=== PATIENT | male | born 1970 | race Caucasian/White ===

== ENCOUNTER 2017-01-18 09:35 | Emergency (ER) | payer MEDICAID ==
[2017-01-18] MEDS ORDERED: NS 1,000 ML IV ONE (09:57)
--- NOTE | 2017-01-18 09:59 | EDPHY ---
H & P Stated Complaint: Bloody stools for 1-2 weeks. Time Seen by Provider: 01/18/17 09:54 HPI/ROS: HPI: This is a 46-year-old male presents with Chief Complaint: Bloody stools for 1-2 weeks. Location: GI Quality: Bleeding Duration: 1-2 weeks Signs and Symptoms:+ intermittent minimal left lower quadrant pain, no nausea, no vomiting, no hematemesis, no testicular groin pain, no hemorrhoids Timing: Daily Severity: [id number] Context: Patient drinks alcohol regularly and has a history of diverticulitis with perforation and sigmoid colectomy presents with daily to every other day bowel movements that have blood in them. He does not take any NSAIDs. Denies any hemorrhoids or rectal pain. Does report some intermittent left lower quadrant minimal pain that is waxing waned over the last 1-2 weeks. Eating and drinking normally. Followed by Dr. Diaz. Two years ago so recommended he was fist have an outpatient colonoscopy and patient never followed up as" he was feeling better." Modifying Factors: None Comment: ROS: see HPI Constitutional: No fever, no chills, no weight loss Eyes: No blurred vision Respiratory: No shortness of breath, no cough Cardiovascular: No chest pain Gastrointestinal: No nausea, no vomiting, no diarrhea Genitourinary: No dysuria Extremities: No myalgias Neurologic: No weakness, no numbness Skin: No rashes Hematologic: No bruising, no bleeding MEDICAL/SURGICAL/SOCIAL HISTORY: medical- obstructive sleep apnea, obesity, anxiety, diverticulitis w/ perforation, seizures, DVT surgical- hernia repair, sigmoid colectomy Social history: Employed CONSTITUTIONAL: Overweight adult white male who smells heavily of marijuana, awake and alert, no obvious distress HEENT: Atraumatic and normocephalic, PERRL, EOMI. Tympanic membranes clear. Oropharynx clear, no exudate and moist pink mucosa. Airway patent. No lymphadenopathy. No meningismus. Cardiovascular: Normal S1/S2, regular rate, regular rhythm, without murmur rub or gallop. PULMONARY/CHEST: Symmetrical and nontender. Clear to auscultation bilaterally. Good air movement. No accessory muscle usage. ABDOMEN: Soft, protuberant, well-healed midline incision, mild deep left lower quadrant tenderness, no rebound, no guarding, no peritoneal signs, no masses or organomegaly. No CVAT. RECTAL: Good sphincter tone, light brown stool in vault, no external hemorrhoids , no fissures, no palpable masses, guaiac positive EXTREMITIES: 2/2 pulses, strength 5/5, no deformities, no clubbing, no cyanosis or edema. NEUROLOGICAL: no focal neuro deficits. GCS 15. SKIN: Warm and dry, no erythema. no rash. Good capillary refill. Source: Patient Exam Limitations: No limitations - Personal History Current Tetanus Diphtheria and Acellular Pertussis (TDAP): Yes Tetanus Vaccine Date: < 10 YEARS - Medical/Surgical History Hx Asthma: No Hx Chronic Respiratory Disease: Yes Hx Diabetes: No Hx Cardiac Disease: No Hx Renal Disease: No Hx Cirrhosis: No Hx Alcoholism: No Hx HIV/AIDS: No Hx Splenectomy or Spleen Trauma: No Other PMH: medical- obstructive sleep apnea, obesity, anxiety, diverticuitis w/ perforation, seizures, DVT. surgical- hernia repair, sigmoid colectomy - Social History Smoking Status: Current every day smoker Constitutional: Initial Vital Signs Temperature (C) 36.6 C 01/18/17 09:43 Heart Rate 84 01/18/17 09:43 Respiratory Rate 18 01/18/17 09:43 Blood Pressure 129/99 H 01/18/17 09:43 O2 Sat (%) 96 01/18/17 09:43 O2 Delivery Mode Room Air Allergies/Adverse Reactions: No Known Allergies Allergy (Verified 09/03/15 15:55) Home Medications: Medication Instructions Recorded Ciprofloxacin [Cipro] 500 mg PO BID #14 tab 01/18/17 metroNIDAZOLE [Flagyl 500 mg (*)] 500 mg PO TID #21 tab 01/18/17 Medical Decision Making ED Course/Re-evaluation: Labs, urinalysis, IV fluids, IV medications, CT abdomen and pelvis scan Vital signs reviewed upon arrival and no hypoxia not tachycardic 1045: Labs reviewed and grossly unremarkable including H&H stable. Guaiac positive. Called by Radiology who advised that shows diverticulitis in the hepatic flexure ; no signs of perforation Given Cipro and Flagyl. Tolerating p.o. and pain controlled. Patient is well-versed in diverticular diet and will follow up with Dr. Diaz Reassessed patient in no pain and asking for regular meal while he waits for his ride to come. Patient is appropriate to treat outpatient. Differential Diagnosis: Abdominal pain including but not limited to diverticulitis, appendicitis, cholecystitis, gastritis and urinary tract infection. - Data Points Laboratory Results: Laboratory Results 01/18/17 10:13 01/18/17 10:13 01/18/17 01/18/17 01/18/17 10:55 10:13 10:13 WBC RBC Hgb Hct MCV MCH MCHC RDW Plt Count MPV Neut % (Auto) Lymph % (Auto) [place] % (Auto) Eos % (Auto) Baso % (Auto) Nucleat RBC Rel Count Absolute Neuts (auto) Absolute Lymphs (auto) Absolute Monos (auto) Absolute Eos (auto) Absolute Basos (auto) Absolute Nucleated RBC Immature Gran % Immature Gran # PT 12.9 SEC SEC (12.0-15.0) INR 0.98 (0.83-1.16) APTT 29.2 SEC SEC (23.0-38.0) Sodium 143 mEq/L mEq/L (134-144) Potassium 4.6 mEq/L mEq/L (3.5-5.2) Chloride 109 mEq/L mEq/L (97-110) Carbon Dioxide 22 mEq/l mEq/l (22-31) Anion Gap 12 mEq/L mEq/L (8-16) BUN 18 mg/dL mg/dL (7-23) Creatinine 0.9 mg/dL mg/dL (0.7-1.3) Estimated GFR > 60 Glucose 99 mg/dL mg/dL (70-100) Calcium 9.3 mg/dL mg/dL (8.5-10.4) Total Bilirubin 0.5 mg/dL mg/dL (0.1-1.4) Conjugated Bilirubin 0.2 mg/dL mg/dL (0.0-0.5) Unconjugated Bilirubin 0.3 mg/dL mg/dL (0.0-1.1) AST 22 IU/L IU/L (17-59) ALT 34 IU/L IU/L (21-72) Alkaline Phosphatase 114 IU/L IU/L (38-126) Total Protein 7.1 g/dL g/dL (6.3-8.2) Albumin 4.2 g/dL g/dL (3.5-5.0) Lipase 48 IU/L IU/L (23-300) Urine Color YELLOW Urine Appearance CLEAR Urine pH 6.0 (5.0-7.5) Ur Specific [place] 1.023 (1.002-1.030) Urine Protein NEGATIVE (NEGATIVE) Urine Ketones NEGATIVE (NEGATIVE) Urine Blood NEGATIVE (NEGATIVE) Urine Nitrate NEGATIVE (NEGATIVE) Urine Bilirubin NEGATIVE (NEGATIVE) Urine Urobilinogen NEGATIVE EU EU (0.2-1.0) Ur Leukocyte Esterase NEGATIVE (NEGATIVE) Urine Glucose NEGATIVE (NEGATIVE) Stool Occult Bld Scrn 01/18/17 01/18/17 10:13 10:03 WBC 11.37 10^3/uL H 10^3/uL (3.80-9.50) RBC 5.81 10^6/uL 10^6/uL (4.40-6.38) Hgb 17.5 g/dL g/dL (13.7-17.5) Hct 50.1 % % (40.0-51.0) MCV 86.2 fL fL (81.5-99.8) MCH 30.1 pg pg (27.9-34.1) MCHC 34.9 g/dL g/dL (32.4-36.7) RDW 14.2 % % (11.5-15.2) Plt Count 295 10^3/uL 10^3/uL (150-400) MPV 8.9 fL fL (8.7-11.7) Neut % (Auto) 66.4 % % (39.3-74.2) Lymph % (Auto) 23.8 % % (15.0-45.0) [place] % (Auto) 6.0 % % (4.5-13.0) Eos % (Auto) 3.0 % % (0.6-7.6) Baso % (Auto) 0.4 % % (0.3-1.7) Nucleat RBC Rel Count 0.0 % % (0.0-0.2) Absolute Neuts (auto) 7.55 10^3/uL H 10^3/uL (1.70-6.50) Absolute Lymphs (auto) 2.71 10^3/uL 10^3/uL (1.00-3.00) Absolute Monos (auto) 0.68 10^3/uL 10^3/uL (0.30-0.80) Absolute Eos (auto) 0.34 10^3/uL 10^3/uL (0.03-0.40) Absolute Basos (auto) 0.05 10^3/uL 10^3/uL (0.02-0.10) Absolute Nucleated RBC 0.00 10^3/uL 10^3/uL (0-0.01) Immature Gran % 0.4 % % (0.0-1.1) Immature Gran # 0.04 10^3/uL 10^3/uL (0.00-0.10) PT INR APTT Sodium Potassium Chloride Carbon Dioxide Anion Gap BUN Creatinine Estimated GFR Glucose Calcium Total Bilirubin Conjugated Bilirubin Unconjugated Bilirubin AST ALT Alkaline Phosphatase Total Protein Albumin Lipase Urine Color Urine Appearance Urine pH Ur Specific [place] Urine Protein Urine Ketones Urine Blood Urine Nitrate Urine Bilirubin Urine Urobilinogen Ur Leukocyte Esterase Urine Glucose Stool Occult Bld Scrn POSITIVE H (NEGATIVE) Medications Given: Discontinued Medications Sodium Chloride (Ns) 1,000 mls @ 0 mls/hr IV EDNOW ONE; Wide Open PRN Reason: Protocol Stop: 01/18/17 09:58 Last Admin: 01/18/17 10:18 Dose: 1,000 mls Lorazepam (Ativan Injection) 1 mg IVP EDNOW ONE Stop: 01/18/17 10:48 Last Admin: 01/18/17 10:51 Dose: 1 mg Pantoprazole Sodium (Protonix) 40 mg IVP EDNOW ONE Stop: 01/18/17 10:04 Last Admin: 01/18/17 10:19 Dose: 40 mg Departure - Departure Disposition: Home, Routine, Self-Care Clinical Impression: Diverticulitis, Guaiac positive stools Condition: Good Instructions: Diverticulitis (ED), Diverticulitis Diet (ED), Rectal Bleeding ( ED) Additional Instructions: Please avoid any NSAIDs. Follow diverticular diet. Take all antibiotics as prescribed until completed. Follow up with Dr. Diaz next week. Referrals: Lucas Diaz MD [Primary Care Provider] - 2-3 days without fail Prescriptions: Ciprofloxacin [Cipro] 500 mg PO BID #14 tab metroNIDAZOLE [Flagyl 500 mg (*)] 500 mg PO TID #21 tab
[2017-01-18] MEDS ORDERED: PANTOPRAZOLE SODIUM 40 MG VIAL IVP ONE (10:03)
[2017-01-18] MEDS ORDERED: IOPAMIDOL (ISOVUE-300) 100 ML BTL ONE (10:13)
[2017-01-18 10:22] LABS: % IMMATURE GRANULYOCYTES 0.4 % (0.0-1.1); ABSOLUTE IMMATURE GRANULOCYTES 0.04 10^3/uL (0.00-0.10); ADD DIFF? NO; ADD MORPH? NO; ADD SCAN? NO; ATYPICAL LYMPHOCYTE FLAG 0 (0-99); FRAGMENT RBC FLAG 0 (0-99); HEMATOCRIT 50.1 % (40.0-51.0); HEMOGLOBIN 17.5 g/dL (13.7-17.5); LEFT SHIFT FLG 0 (0-99); LIPEMIA HEMOLYSIS FLAG 90 (0-99); MEAN CELL HEMOGLOBIN 30.1 pg (27.9-34.1); MEAN CELL HEMOGLOBIN CONCENTR. 34.9 g/dL (32.4-36.7); MEAN CELL VOLUME 86.2 fL (81.5-99.8); MEAN PLATELET VOLUME 8.9 fL (8.7-11.7); PLATELET CLUMPS FLAG 0 (0-99); PLATELET COUNT 295 10^3/uL (150-400); RED BLOOD CELL COUNT 5.81 10^6/uL (4.40-6.38); RED CELL DISTRIBUTION WIDTH 14.2 % (11.5-15.2)
[2017-01-18 10:32] LABS: INR 0.98 (0.83-1.16); PROTIME(PATIENT) 12.9 SEC (12.0-15.0)
[2017-01-18 10:33] LABS: APTT 29.2 SEC (23.0-38.0)
[2017-01-18 10:36] LABS: ALANINE AMINOTRANSFERASE 34 IU/L (21-72); ALBUMIN 4.2 g/dL (3.5-5.0); ALKALINE PHOSPHATASE 114 IU/L (38-126); ANION GAP 12 mEq/L (8-16); ASPARTATE AMINOTRANSFERASE 22 IU/L (17-59); BILIRUBIN,TOTAL 0.5 mg/dL (0.1-1.4); BILIRUBIN-CONJUGATED 0.2 mg/dL (0.0-0.5); BILIRUBIN-UNCONJUGATED 0.3 mg/dL (0.0-1.1); CALCIUM 9.3 mg/dL (8.5-10.4); CARBON DIOXIDE 22 mEq/l (22-31); CHLORIDE 109 mEq/L (97-110); CREATININE 0.9 mg/dL (0.7-1.3); GLOMERULAR FILTRATION RATE > 60; GLUCOSE 99 mg/dL (70-100); POTASSIUM 4.6 mEq/L (3.5-5.2); SODIUM 143 mEq/L (134-144); TOTAL PROTEIN 7.1 g/dL (6.3-8.2)
[2017-01-18] MEDS ORDERED: LORazepam 2 MG/ML INJ IVP ONE (10:47)
[2017-01-18 11:05] LABS: COLOR YELLOW; LEUKOCYTE ESTERASE,URINE NEGATIVE (NEGATIVE); NITRITE,URINE NEGATIVE (NEGATIVE)
[2017-01-18] MEDS ORDERED: metroNIDAZOLE 500 MG TAB PO ONE (12:24)
[2017-01-18] MEDS ORDERED: CIPROFLOXACIN 500 MG TAB PO ONE (12:24)
[2017-01-18 12:27] VITALS: PULSE 74
[2017-01-18 13:10] VITALS: BP 125/76; RESP 15; TEMP 97.2; O2SAT 94
--- NOTE | 2017-01-18 16:34 | ASDISCHSUM ---
Discharge Information Plan Status:Home with No Needs Medically Cleared to Leave: Discharge Date:01/18/2017 01:09 PM CM D/C Disposition:Home, Routine, Self-Care ADT D/C Disposition:Home, Routine, Self-Care Projected Discharge Date:01/18/2017 01:09 PM Transportation at D/C:None or Unknown Discharge Delay Reason: Follow-Up Date:01/18/2017 01:09 PM Discharge Slot: Final Diagnosis: Placement Information Patient Contact Information Contact Name:SAMIR Relationship:Other Address: Work Phone: City:[place] Alternate Phone: State/[place] Code:[place] Email: Financial Information Financial Class: Primary Plan 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 Emergency dept visits in Answers: 1 last 6 months Score: 1 Date Signed: 01/18/2017 04:33 PM Electronically Signed By:Samina Rasmussen RN Intervention Information
== END 2017-01-18 13:09 | disposition home or self-care (01) ==
DX: K57.92 Diverticulitis of intestine, part unspecified, without perforation or abscess without bleeding (principal); F17.200 Nicotine dependence, unspecified, uncomplicated; E86.9 Volume depletion, unspecified
CPT/HCPCS: 96374; J2060; Q9967

== ENCOUNTER 2017-09-05 16:45 | Emergency (ER) | payer MEDICAID ==
[2017-09-05] MEDS ORDERED: PANTOPRAZOLE SODIUM 40 MG VIAL IVP ONE (17:30)
[2017-09-05] MEDS ORDERED: NS 500 ML IV ONE (17:30)
--- NOTE | 2017-09-05 17:36 | EDPHY ---
H & P Time Seen by Provider: 09/05/17 17:06 HPI/ROS: HPI Abdominal pain, rectal bleeding. 47-year-old male by private vehicle. This patient reports that he has a history of diverticulitis and a colonic resection that was performed by Dr. Ismael Diaz. He reports that this occurred about 2 year ago. He reports that last year he had some mild bleeding per rectum with associated left lower quadrant abdominal pain. He was seen in the emergency department at this time. He had a unremarkable workup. His pain resolved and he was discharged. He reports that since then he has been feeling well. He reports that about a week ago he started getting intermittent lower and mid abdominal pain which he describes as coming on intermittently in waves. He describes pain as aching and sharp. He reports that over the last couple of days he has noticed that his stools appear darker and today is stools were black and he reports having some blood mixed in with his black stool. Patient reports his last meal was lunch. He reports having turkey potatoes at that time. ROS: Constitutional: No fever, no chills. No weakness. Eyes: No discharge. No changes in vision. ENT: No sore throat. No nasal congestion or rhinorrhea. Respiratory: No cough. No shortness of breath. Cardiac: No chest pain, no palpitations. Gastrointestinal: No abdominal pain, no vomiting, no diarrhea. Genitourinary: No hematuria. No dysuria or increased frequency with urination. Musculoskeletal: No back pain. No neck pain. No myalgias or arthralgias. Skin: No rashes. Neurological: No headache. No focal weakness or altered sensation. Past medical history: Obstructive sleep apnea, obesity, anxiety, seizures, DVT , sigmoid colectomy. Primary care physician is Dr. Ambriz. General surgeon is Dr. Eric Diaz. Social history: Nonsmoker. He lives in [facility]. Denies alcohol. Physical Exam: General Appearance: Alert, anxious, obese habitus, no distress. This patient is responding to questions appropriately and in full sentences. This patient appears well-hydrated and well-nourished. Eyes: Pupils equal and round no pallor or injection. No lid edema, erythema or injection. Respiratory: There are no retractions, lungs are clear to auscultation with good air movement bilaterally. Cardiovascular: Regular rate and rhythm. No murmur. Gastrointestinal: Large midline surgical scar. Obese habitus. Abdomen is soft and nontender throughout on deep palpation, no masses, bowel sounds normal. No focal tenderness at McBurney's point. No Noonan sign. Rectal exam: No bleeding hemorrhoids. Brown stool. No melenic stool. No gross blood. Normal tone. Neurological: Motor sensory function is grossly intact. Cranial nerves are normal. Gait is normal. Skin: Warm and dry, no rashes. Musculoskeletal: Neck is supple and nontender. Extremities are symmetrical. All joints range without pain or impingement. Psychiatric: No agitation. No depression. Database: EKG: Imaging: CT abdomen and pelvis with IV contrast: Significant for recurrent diverticulitis. Same location as in 2017. No evidence of perforation. Results were discussed with staff radiologist Dr. Kali Jon. Please see his report for further details. Procedures: Emergency department course: Vital signs reviewed and are normal. IV was placed. CT imaging to be obtained to evaluate for possible diverticulitis. 7:10 p.m., patient re-evaluated. He appears comfortable at this time. Repeat abdominal exam is soft, nontender nondistended. I discussed the results of his CT scan and diagnosis of diverticulitis. I recommended admission and IV antibiotics. He reports that he has dogs at home and does not want to be admitted at this time. He has been afebrile in the emergency department. His vital signs have been normal. He is requesting discharge. The patient competently engages in shared decision making. They demonstrate capacitance to make decisions. He states that he cannot take Flagyl. I will prescribe him Augmentin 875 mg 3 times daily. He was given a dose in the emergency department. I will send him home with a dose as well. He will fill this prescription tomorrow. For pain I will prescribe tramadol. I stressed the importance of a low threshold to return to the emergency department for worsening pain fever vomiting, rectal bleeding or other concerns. He is to follow up with his general surgeon Dr. Ismael Diaz on Saturday for re- evaluation. Differential Diagnosis: The differential diagnosis on this patient includes but is not limited to diverticulitis, upper versus lower gastrointestinal bleeding, anxiety reaction. This represents a partial list of diagnoses considered. These considerations are based on history, physical exam, past history, reassessment and diagnostic testing. Smoking Status: Current every day smoker Constitutional: Initial Vital Signs Temperature (C) 36.6 C 09/05/17 16:50 Heart Rate 88 09/05/17 16:50 Respiratory Rate 17 09/05/17 16:50 Blood Pressure 119/98 H 09/05/17 16:50 O2 Sat (%) 94 09/05/17 16:50 O2 Delivery Mode Room Air Allergies/Adverse Reactions: No Known Allergies Allergy (Verified 09/05/17 16:49) Home Medications: Medication Instructions Recorded Amoxicillin/Clavulanate Pot 875 mg PO TID 10 Days tab 09/05/17 [Augmentin 875 mg tab] Gabapentin 09/05/17 Prilosec 09/05/17 traMADol HCL [Tramadol HCl] 50 mg PO Q4-6PRN PRN #20 tablet 09/05/17 Medical Decision Making - Diagnostics Imaging Results: Imaging Impressions Abdomen CT 09/05/17 18:06 Impression: 1. Recurrent colitis at the level of the hepatic flexure, likely on the basis of acute diverticulitis, with no pericolonic abscess or pneumoperitoneum. Interestingly, this is in same location as that occurring in December 2016. Following appropriate antibiotic therapy, follow-up is recommended to assure resolution of these findings. If the findings do not resolve, colonoscopy is suggested to exclude an underlying neoplasm. 2. Status post sigmoid colectomy. Findings and recommendations were discussed with Thang Almeida MD at 18:59, on 09/05/2017. - Data Points Laboratory Results: Laboratory Results 09/05/17 17:24 09/05/17 17:24 09/05/17 09/05/17 09/05/17 17:28 17:24 17:24 WBC RBC Hgb Hct MCV MCH MCHC RDW Plt Count MPV Neut % (Auto) Lymph % (Auto) [place] % (Auto) Eos % (Auto) Baso % (Auto) Nucleat RBC Rel Count Absolute Neuts (auto) Absolute Lymphs (auto) Absolute Monos (auto) Absolute Eos (auto) Absolute Basos (auto) Absolute Nucleated RBC Immature Gran % Immature Gran # PT 13.1 SEC SEC (12.0-15.0) INR 0.97 (0.83-1.16) APTT 28.1 SEC SEC (23.0-38.0) Sodium 137 mEq/L mEq/L (135-145) Potassium 4.4 mEq/L mEq/L (3.3-5.0) Chloride 104 mEq/L mEq/L (97-110) Carbon Dioxide 21 mEq/l L mEq/l (22-31) Anion Gap 12 mEq/L mEq/L (8-16) BUN 16 mg/dL mg/dL (7-23) Creatinine 1.0 mg/dL mg/dL (0.7-1.3) Estimated GFR > 60 Glucose 87 mg/dL mg/dL (70-100) Calcium 9.3 mg/dL mg/dL (8.5-10.4) Total Bilirubin 0.5 mg/dL mg/dL (0.1-1.4) Conjugated Bilirubin 0.2 mg/dL mg/dL (0.0-0.5) Unconjugated Bilirubin 0.3 mg/dL mg/dL (0.0-1.1) AST 22 IU/L IU/L (17-59) ALT 35 IU/L IU/L (21-72) Alkaline Phosphatase 101 IU/L IU/L (38-126) Total Protein 6.7 g/dL g/dL (6.3-8.2) Albumin 3.7 g/dL g/dL (3.5-5.0) Lipase 46 IU/L IU/L (23-300) Stool Occult Bld Scrn POSITIVE H (NEGATIVE) 09/05/17 17:24 WBC 10.29 10^3/uL H 10^3/uL (3.80-9.50) RBC 5.29 10^6/uL 10^6/uL (4.40-6.38) Hgb 13.4 g/dL L g/dL (13.7-17.5) Hct 41.9 % % (40.0-51.0) MCV 79.2 fL L fL (81.5-99.8) MCH 25.3 pg L pg (27.9-34.1) MCHC 32.0 g/dL L g/dL (32.4-36.7) RDW 15.6 % H % (11.5-15.2) Plt Count 330 10^3/uL 10^3/uL (150-400) MPV 8.8 fL fL (8.7-11.7) Neut % (Auto) 64.5 % % (39.3-74.2) Lymph % (Auto) 20.6 % % (15.0-45.0) [place] % (Auto) 7.3 % % (4.5-13.0) Eos % (Auto) 6.6 % % (0.6-7.6) Baso % (Auto) 0.7 % % (0.3-1.7) Nucleat RBC Rel Count 0.0 % % (0.0-0.2) Absolute Neuts (auto) 6.64 10^3/uL H 10^3/uL (1.70-6.50) Absolute Lymphs (auto) 2.12 10^3/uL 10^3/uL (1.00-3.00) Absolute Monos (auto) 0.75 10^3/uL 10^3/uL (0.30-0.80) Absolute Eos (auto) 0.68 10^3/uL H 10^3/uL (0.03-0.40) Absolute Basos (auto) 0.07 10^3/uL 10^3/uL (0.02-0.10) Absolute Nucleated RBC 0.00 10^3/uL 10^3/uL (0-0.01) Immature Gran % 0.3 % % (0.0-1.1) Immature Gran # 0.03 10^3/uL 10^3/uL (0.00-0.10) PT INR APTT Sodium Potassium Chloride Carbon Dioxide Anion Gap BUN Creatinine Estimated GFR Glucose Calcium Total Bilirubin Conjugated Bilirubin Unconjugated Bilirubin AST ALT Alkaline Phosphatase Total Protein Albumin Lipase Stool Occult Bld Scrn Medications Given: Discontinued Medications Amoxicillin/Clavulanate Potassium (Augmentin 875mg) 875 mg PO EDNOW ONE PRN Reason: Protocol Stop: 09/05/17 19:23 Last Admin: 09/05/17 19:25 Dose: 875 mg Amoxicillin/Clavulanate Potassium (Augmentin 875mg) 875 mg PO EDNOW ONE PRN Reason: Protocol Stop: 09/05/17 19:24 Last Admin: 09/05/17 19:26 Dose: 875 mg Fentanyl (Sublimaze) 25 mcg IVP EDNOW ONE Stop: 09/05/17 18:27 Last Admin: 09/05/17 18:49 Dose: 25 mcg Sodium Chloride (Ns) 500 mls @ 0 mls/hr IV EDNOW ONE; Wide Open PRN Reason: Protocol Stop: 09/05/17 17:31 Last Admin: 09/05/17 17:46 Dose: 500 mls Pantoprazole Sodium (Protonix) 80 mg IVP EDNOW ONE Stop: 09/05/17 17:31 Last Admin: 09/05/17 17:46 Dose: 80 mg Departure - Departure Disposition: Home, Routine, Self-Care Clinical Impression: Abdominal pain, Diverticulitis, Rectal bleeding Condition: Good Instructions: Amoxicillin/Clavulanate Potassium (By mouth), Tramadol (By mouth) , Diverticulitis (ED), Rectal Bleeding (ED), Diverticulitis Diet (ED) Additional Instructions: Read and follow provided instructions. Follow-up with Dr. Diaz on Saturday or Saturday of next week for re-evaluation. It is very important that you do this. Call his office tomorrow for follow-up. Explain you were seen in the emergency department today. Take medication as prescribed and through entire course of treatment. Narcotic pain medication dosin-2 every 4-6 hours as needed for pain. Do not drive on this medication. Return to the emergency department immediately for worsening symptoms, rectal bleeding, fever, worsening pain, vomiting or other serious concerns. Referrals: Chace Álvarez MD [Primary Care Provider] - As per Instructions Lucas Diaz MD [Medical Doctor] - As per Instructions Prescriptions: Amoxicillin/Clavulanate Pot [Augmentin 875 mg tab] 875 mg PO TID 10 Days tab traMADol HCL [Tramadol HCl] 50 mg PO Q4-6PRN PRN #20 tablet PRN Reason: Pain, Moderate
[2017-09-05 17:37] LABS: PLATELET COUNT 330 10^3/uL (150-400)
[2017-09-05 17:45] LABS: INR 0.97 (0.83-1.16); PROTIME(PATIENT) 13.1 SEC (12.0-15.0)
[2017-09-05] MEDS ORDERED: IOPAMIDOL (ISOVUE-300) 100 ML BTL ONE (18:11)
[2017-09-05] MEDS ORDERED: fentaNYL 100 MCG/2 ML INJ IVP ONE (18:26)
[2017-09-05] MEDS ORDERED: AMOXICILLIN/CLAVULANATE POT 875/125 MG TAB PO ONE ×2 (19:22→19:23)
[2017-09-05 19:29] VITALS: BP 145/90
== END 2017-09-05 19:34 | disposition home or self-care (01) ==
DX: K62.5 Hemorrhage of anus and rectum (principal); K57.90 Diverticulosis of intestine, part unspecified, without perforation or abscess without bleeding; E86.9 Volume depletion, unspecified
CPT/HCPCS: 96374; J3010; Q9967

== ENCOUNTER 2017-10-13 | Emergency (ER) | payer MEDICAID | END 2017-10-13 11:54 | disposition home or self-care (01) ==

== ENCOUNTER 2017-10-15 11:01 | Inpatient (IN) | payer MEDICAID ==
[2017-10-15] MEDS ORDERED: LORazepam 2 MG/ML INJ ONE ×2 (11:31→11:52)
[2017-10-15] MEDS ORDERED: NICOTINE 21 MG/24 HR PATCH TD ONE (11:31)
[2017-10-15] MEDS ORDERED: HYDROmorphONE/DILAUDID 1 MG/ML INJ ONE (11:31)
--- NOTE | 2017-10-15 14:06 | EDPHY ---
H & P Time Seen by Provider: 10/15/17 14:02 HPI/ROS: CHIEF COMPLAINT: Abdominal pain and anxiety HISTORY OF PRESENT ILLNESS: The patient is a man who has been complaining of bloody stool intermittently for the last 9 months. He was seen here on Saturday and found to have a colonic mass on CT scan. At that time it was recommended that he be admitted for further workup and likely biopsy. He refused because of responsibility see had at home. He has now returned complaining of continued pain and primarily anxiety about his diagnosis. He is now willing to stay in the hospital. He states that he spoke to Dr. Crystal Diaz last night who advised him to return to the ER. No vomiting or diarrhea. REVIEW OF SYSTEMS: Constitutional: denies: chills, fever, recent illness, recent injury EENTM: denies: blurred vision, double vision, nose congestion Respiratory: denies: cough, shortness of breath Cardiac: denies: chest pain, irregular heart rate, lightheadedness, palpitations Gastrointestinal/Abdominal: See HPI Genitourinary: denies: dysuria, frequency, hematuria, pain Musculoskeletal: denies: joint pain, muscle pain Skin: denies: lesions, rash, jaundice, bruising Neurological: denies: headache, numbness, paresthesia, tingling, dizziness, weakness Hematologic/Lymphatic: denies: blood clots, easy bleeding, easy bruising Immunologic/allergic: denies: HIV/AIDS, transplant EXAM: GENERAL: Well-appearing, well-nourished and in no acute distress. HEAD: Atraumatic, normocephalic. EYES: Pupils equal round and reactive to light, extraocular movements intact, sclera anicteric, conjunctiva are normal. ENT: TMs normal, nares patent, oropharynx clear without exudates. Moist mucous membranes. NECK: Normal range of motion, supple without lymphadenopathy or JVD. LUNGS: Breath sounds clear to auscultation bilaterally and equal. No wheezes rales or rhonchi. HEART: Regular rate and rhythm without murmurs, rubs or gallops. ABDOMEN: Mild distention, left upper quadrant pain and mild tenderness, BACK: No CVA tenderness, no spinal tenderness, step-offs or deformities EXTREMITIES: Normal range of motion, no pitting or edema. No clubbing or cyanosis. NEUROLOGICAL: Cranial nerves II through XII grossly intact. Normal speech, normal gait. 5/5 strength, normal movement in all extremities, normal sensation PSYCH: Normal mood, normal affect. SKIN: Warm, dry, normal turgor, no visible rashes or lesions. Source: Patient Exam Limitations: No limitations - Personal History Tetanus Vaccine Date: < 10 YEARS - Medical/Surgical History Hx Asthma: No Hx Chronic Respiratory Disease: Yes Hx Diabetes: No Hx Cardiac Disease: No Hx Renal Disease: No Hx Cirrhosis: No Hx Alcoholism: No Hx HIV/AIDS: No Hx Splenectomy or Spleen Trauma: No Other PMH: medical- obstructive sleep apnea, obesity, anxiety, diverticuitis w/ perforation, seizures, DVT. surgical- hernia repair, sigmoid colectomy - Social History Smoking Status: Current every day smoker Alcohol Use: Sober Drug Use: None Allergies/Adverse Reactions: No Known Allergies Allergy (Verified 10/13/17 09:10) Home Medications: Medication Instructions Recorded Gabapentin [Neurontin 300 MG (*)] 600 mg PO BID PRN 09/05/17 Omeprazole 20 mg PO DAILY 09/05/17 Albuterol [Proventil Inhaler HFA 1 - 2 puffs IH DAILY PRN 10/15/17 (*)] Medical Decision Making ED Course/Re-evaluation: Medical decision making: Unfortunately our computer system is currently down so I do not have previous records available to me. I spoke with the nurse who took care of him when he was here few days ago and to the patient. The patient thinks that he is here basically to be admitted and does not wish to have a new extensive workup performed. I have paged crystal Diaz for further discussion and likely admission. 11:45 a.m. I was able to speak with Dr. Diaz who recommends admission to his service and [facility] for colonoscopy. The patient is happy with this and is asking for another dose of Ativan for anxiety. 12:05 p.m. I discussed the case with Dr. Nikki Treadwell who will consult Differential Diagnosis: Partial list of the Differential diagnosis considered include but were not limited to; GI bleed, cancer, anemia and although unlikely based on the history and physical exam, I also considered infection, trauma, perforation. Departure - Departure Disposition: [facility] Inpatient Acute Clinical Impression: GI bleed, Colonic mass Condition: Fair
[2017-10-15] MEDS: LORazepam 2 MG/ML INJ IVP PRN ×2 (15:14→21:54)
--- NOTE | 2017-10-15 15:22 | GCON ---
[f rep st] CONSULTATION REFERRING PHYSICIAN: Lucas Diaz MD REASON FOR CONSULTATION: Abdominal pain. HISTORY OF PRESENT ILLNESS: I was asked by Dr. Diaz to evaluate the patient in the setting of abdom inal pain associated with rectal bleeding and an abnormal CT scan. The patient reports that he has h ad several months of intermittent abdominal discomfort associated with intermittent rectal bleeding. These symptoms were mild and intermittent, and so he ignored them initially. He felt they may have been related to a prior surgery for diverticulosis complicated by diverticulitis. Over the last libra ral days, his symptoms have become much worse. He noticed a change in the caliber of stools, as well as increased degree of blood loss with bowel movements. He presents to the emergency room approxima tely 48 hours ago. At that time, he elected to discharge home for an outpatient elective colonoscopy . His symptoms were progressive, he was having difficulty scheduling the exam, and so he re-presente d to the emergency room for evaluation. He has been admitted now for the evaluation of abdominal diego n, abnormal CT scan, and rectal bleeding. The clinical presentation is concerning for the developmen t of a colon cancer. He reports family historyof colon cancer, both in first-degree relatives as well as distant relatives . He has had prior colonoscopy, but he believes it has been 15 or more years ago. He does not repor t any personal history of colon cancer or colon polyps. In 2012, he underwent partial colectomy rela jesse to sigmoid diverticulitis and abscess. PAST MEDICAL HISTORY: Includes diverticulitis, sleep apnea, seizure disorder, and anxiety. SOCIAL HISTORY: He is a tobacco smoker. FAMILY HISTORY: Includes colorectal cancer in first-degree relatives, as well as distant relatives. ALLERGIES: None. OUTPATIENT MEDICATIONS: Gabapentin and Prilosec. REVIEW OF SYSTEMS: A complete 10-point review was undertaken with the patient. The pertinent positi ves and negatives are detailed in the history of present illness. PHYSICAL EXAMINATION: GENERAL: This is somewhat anxious male in no apparent distress. HEENT: His pupils are equal, round, reactive to light and accommodation. His sclerae are nonicteric. His oroph arynx is clear. NECK: Supple without lymphadenopathy. HEART: Regular without murmur. ABDOMEN: S oft, but mildly tender. He has well-healed midline incision. LUNGS: Clear to auscultation. NEURO: Grossly nonfocal. SKIN: Reveals no lesions. MUSCULOSKELETAL: His joints show no arthritis. PSY CH: Exam reveals normal mood and affect with some degree of anxiety. LABORATORY/IMAGING: White count of 11.9, hemoglobin of 14.4, hematocrit of 44.2, MCV of 76.6, platel et count of 381. Sodium of 140, potassium of 4.1, chloride of 105, bicarb of 22, BUN of 10, creatini ne of 0.9. CT scan of the abdomen and pelvis on 10/13/2017, revealed enhancing circumferential colonic lesion at the hepatic flexure with surrounding edema suspicious for colonic neoplasm versus diverticulitis. IMPRESSION/RECOMMENDATIONS: The patient has had change in bowel habits associated with abdominal diego n and rectal bleeding. His CT scan is concerning for the development of colon cancer. He has a stro ng family history of this as well. At this time, I recommend colonoscopy to evaluate his abnormal im aging findings. I am suspicious that he will end up requiring surgical therapy, but we can await col onoscopy results. Meanwhile, the patient should remain on a clear liquid diet. We will begin a laxa tive purge this evening. /[id number]/MODL
--- NOTE | 2017-10-15 15:57 | ASMTCMCOM ---
CM Note CM Note Notes: Pt presented to the ED for the same symptoms he presented for on 10/13/17. Please refer to CM Report 10/13/17 for additional info Pt admitted for rectal bleeding and concerns of having a malignant colonic mass. Dr Ismael Diaz is very familiar w/pt. Dr Treadwell w/GI consulted; pt to have colonoscopy. Consider ordering a consult by [facility] RN due to pt's ongoing anxiety. Exact DC needs TBD. CM to follow. Date Signed: 10/15/2017 03:56 PM Electronically Signed By:Samina Rasmussen RN
[2017-10-15] MEDS: HYDROmorphONE/DILAUDID 1 MG/ML INJ IVP PRN ×2 (16:49→22:02)
[2017-10-15] MEDS ORDERED: PEG 3350/NA SULF,BICARB,CL/KCL (GAVILYTE-G) 4000 ML BTL PO ONE (17:00)
[2017-10-15 17:01] LABS: PLATELET COUNT 432 10^3/uL (150-400)
[2017-10-16] MEDS: HYDROmorphONE/DILAUDID 1 MG/ML INJ IVP PRN ×6 (01:00→21:13)
[2017-10-16] MEDS: LORazepam 2 MG/ML INJ IVP PRN ×3 (04:04→16:49)
[2017-10-16] MEDS ORDERED: LR 1,000 ML IV ONE (07:33)
--- NOTE | 2017-10-16 07:44 | PDANEPAE ---
ANE Past Medical History - Pulmonary History Hx COPD: Yes Hx Oxygen in Use at Home: No Hx Sleep Apnea: Yes Sleep Apnea Screening Result - Last Documented: Positive - Endocrine History Hx Diabetes: No ANE Review of Systems Review of Systems: ANE Patient History - Allergies Allergies/Adverse Reactions: No Known Allergies Allergy (Verified 10/13/17 09:10) - Home Medications Home Medications: Gabapentin [Neurontin 300 MG (*)] 600 mg PO BID PRN 09/05/17 [Last Taken ] Omeprazole 20 mg PO DAILY 09/05/17 [Last Taken Unknown] Albuterol [Proventil Inhaler HFA (*)] 1 - 2 puffs IH DAILY PRN 10/15/17 [Last Taken 10/15/17] - NPO status NPO Since - Liquids (Date): 10/16/17 NPO Since - Liquids (Time): 00:00 NPO Since - Solids (Date): 10/16/17 NPO Since - Solids (Time): 00:00 - Smoking Hx Smoking Status: Current every day smoker - Alcohol Use Alcohol Use: Sober ANE Labs/Vital Signs - Labs Result Diagrams: 10/15/17 13:58 10/15/17 13:58 - Vital Signs Blood Pressure: 144/76 Heart Rate: 89 Respiratory Rate: 10 O2 Sat (%): 91 Height: 167.64 cm Weight: 97.522 kg ANE Physical Exam - Airway Mallampati Score: Class 2 Mouth exam: poor dentition - ASA Status ASA Status: III ANE Anesthesia Plan Total IV Anesthesia: Yes
[2017-10-16] MEDS ORDERED: MIDAZOLAM 2 MG/2 ML VIAL ONE (08:09)
[2017-10-16] MEDS ORDERED: PROPOFOL/EMULSION 500 MG/50 ML BOTTLE IV ONE (08:10)
[2017-10-16] MEDS ORDERED: ONDANSETRON 4 MG/2 ML VIAL IVP PRN (09:06)
[2017-10-16] MEDS ORDERED: ALBUTEROL 3 ML DEYVIAL IH PRN (09:06)
[2017-10-16] MEDS ORDERED: fentaNYL 100 MCG/2 ML INJ IVP PRN (09:06)
[2017-10-16] MEDS ORDERED: NALOXONE HCL 0.4 MG/ML INJ IVP PRN (09:06)
[2017-10-16] MEDS ORDERED: LR 500 ML IV PRN (09:06)
--- NOTE | 2017-10-16 09:07 | POSTANESTH ---
Post Anesthetic Evaluation Cardiovascular Status: Normal, Stable Respiratory Status: Similar to Pre-op Cond. Level of Consciousness/Mental Status: Can Participate in Eval Pain Control: Adequate, Prn Tx Ordered Nausea/Vomiting Control: Adequate, Prn Tx Ordered Complications Possibly Related to Anesthesia: None Noted
--- NOTE | 2017-10-16 09:13 | GIREPORT ---
[facility] Surgical Services - Endoscopy Department Patient Name: Noam Kim Procedure Date: 10/16/2017 8:11 AM Patient Type: Inpatient Attending MD/ ER Physician: Nikki Treadwell MD Procedure: Colonoscopy Indications: Generalized abdominal pain, Hematochezia, Abnormal CT of the GI tract Providers: Nikki Treadwell MD Medicines: Sedation Required Anesthesia Staff Assistance Complications: No immediate complications. Description of Procedure: After obtaining informed consent, the scope was passed under direct vis ion. Throughout the procedure, the patient's blood pressure, pulse, and oxyg en saturations were monitored continuously. The Colonoscope with irrigatio n channel was introduced through the anus and advanced to the cecum, identified by appendiceal orifice and ileocecal valve. The colonoscopy was performed without difficulty. The patient tolerated the procedure well. The quality of the bowel preparation was good except the ascending colon wa s poor. Findings: A frond-like/villous partially obstructing large mass was found at the hepatic flexure. The mass was circumferential. Oozing was present. Biop sies were taken with a cold forceps for histology. A 30 mm polyp was found in the mid transverse colon. The polyp was semi-sessile. The polyp was removed with a hot snare. Resection and retrieval were complete. To repair the defect, the tissue edges were approximated and three hemostatic clips were successfully placed. Closu re of the defect was partially successful. There was no bleeding during the procedure. Area was tattooed with an injection of 3 mL of Judith ink. There was evidence of a prior end-to-side colo-colonic anastomosis in t he sigmoid colon. This was patent and was characterized by healthy appeari ng mucosa. The anastomosis was traversed. Estimated Blood Loss: Estimated blood loss: none. Estimated blood loss: none. 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 Biopsied. - One 30 mm polyp in the mid transverse colon, removed with a hot snare . Resected and retrieved. Clips were placed. Tattooed. - Patent end-to-side colo-colonic anastomosis, characterized by healthy appearing mucosa. Recommendation: - [facility]. - Await pathology results. - The findings and recommendations were discussed with the surgeon. - The findings and recommendations were discussed with the patient. Nikki Treadwell MD Nikki Treadwell MD 10/16/2017 9:12:23 AM This report has been signed electronicallyNikki Treadwell MD Number of Addenda: 0 Note Initiated On: 10/16/2017 8:11 AM Total Procedure Duration Time 0 hours 33 minutes 5 seconds [email or web address]
--- NOTE | 2017-10-16 09:15 | SUROPNOTE ---
[facility] Operative Report - Surgery BRIEF COLON NOTE Indication: blood in stool, abd pain, abnormal CT Medication: per anesthesia Complications: none acutely Findings: 1. hepatic flexure mass, large, partially obstructing, likely malignant, bx'd 2. transverse colon polyp, 3cm, sessile, removed piecemeal with hot snare, tattooed, 3 endo clips placed over mucosal defect from polypectomy 3. prior sigmoid resection, intact, helathy appearing IMPRESSION/RECS: 1. partial obstruction - likely malignant, will need surgical therapy 2. Polyp - path uncertain, may need surgical resection vs endoscopic follow-up 3. await path 4. discussed with Dr. Diaz - fazal sign off, call with questions
--- NOTE | 2017-10-16 10:43 | ASMTCASEMG ---
Living Arrangements What is your living Answers: Alone arrangement? Who do you live with? Type Of Residence What kind of residence do Answers: House you live in? Discharge Plan Comments Coordination Status Comments Notes: Patient is a 47yo male who is disabled and lives in [place] He is experiencing considerable anxiety in addition to rectal bleeding and concerns of having a malignant colonic mass. Dr Diaz is familiar with this patient. No therapies ordered at this time. Consider ordering a consult with Mariaelena Rogel for patient's anxiety. D/C needs TBD. CM will follow. Date Signed: 10/16/2017 10:43 AM Electronically Signed By:Mariia Torres LCSW
[2017-10-16] MEDS: NICOTINE 21 MG/24 HR PATCH TD SCH (12:08)
--- NOTE | 2017-10-16 12:58 | SOAPPROG ---
SOAP Progress Note Assessment/Plan: Assessment/Plan: 47 Y M c hx abdominal pain and hematochezia, thought to be 2/2 colitis, now colon mass of hepatic flexure. Appreciate GI consult and colonoscopy. Pathology pending, but high suspicion for malignant almost fully obstructing colon cancer. Plan for lap assisted R hemicolectomy for Saturday. Risks and options and expectations discussed in great detail. Increase ativan. S: very tearful. denies pain, but extremely anxious. O: tearful, but no physical distress, alert, oriented. no jaundice. poor dentition. ctab. rrr. abd soft, nt. 10/16/17 12:54 Objective: Vital Signs Temp Pulse Resp BP Pulse Ox 37.0 C 80 21 H 123/88 H 97 10/16/17 12:00 10/16/17 12:00 10/16/17 12:00 10/16/17 12:00 10/16/17 12:00 Laboratory Results 10/15/17 13:58 10/15/17 13:58 10/15/17 10/16/17 10/17/17 05:59 05:59 05:59 Intake Total 520 Balance 520 ICD10 Worksheet Patient Problems: Problems Problem Status Onset Colonic mass Acute GI bleed Acute Bacteremia due to Gram-negative bacteria Acute Sepsis Acute Septic shock Acute
--- NOTE | 2017-10-16 15:35 | PDMN ---
Medical Necessity Medical necessity: Change to IP, as of 10/16/17, per PA; los >2 mn for ongoing management of abdominal pain & hematochezia secondary to colitis w/hepatic flexure colon mass; requiring lap assisted R hemicolectomy & pain management
[2017-10-17] MEDS: LORazepam 2 MG/ML INJ IVP PRN ×3 (00:13→18:50)
[2017-10-17] MEDS: HYDROmorphONE/DILAUDID 1 MG/ML INJ IVP PRN ×3 (03:20→18:05)
[2017-10-17] MEDS: NICOTINE 21 MG/24 HR PATCH TD SCH (09:48)
--- NOTE | 2017-10-17 12:34 | SOAPPROG ---
SOAP Progress Note Assessment/Plan: Assessment: 47 Y M c hx abdominal pain and hematochezia, now with suspicious mass at hepatic flexure found during colonoscopy S: No new events. No complaints O: Alert Afebrile RRR No increased WOB Abdomen: soft, nontender, +BS Plan: OR tomorrow for R hemicolectomy. Again answered questions. Pt seems at ease with surgery today. 10/17/17 12:31 Objective: Vital Signs Temp Pulse Resp BP Pulse Ox 36.6 C 77 18 129/94 H 97 10/17/17 11:11 10/17/17 11:11 10/17/17 11:11 10/17/17 11:11 10/17/17 11:11 10/16/17 10/17/17 10/18/17 05:59 05:59 05:59 Intake Total 500 Balance 500 ICD10 Worksheet Patient Problems: Problems Problem Status Onset Colonic mass Acute GI bleed Acute Bacteremia due to Gram-negative bacteria Acute Sepsis Acute Septic shock Acute
[2017-10-17] MEDS ORDERED: GABAPENTIN 300 MG CAP PO PRN (17:27)
[2017-10-18] MEDS: HYDROmorphONE/DILAUDID 1 MG/ML INJ IVP PRN ×2 (00:12→05:11)
[2017-10-18] MEDS: LORazepam 2 MG/ML INJ IVP PRN ×2 (01:08→21:14)
[2017-10-18] MEDS ORDERED: cefOXitin SODIUM 2 GM in NS 100 ML IV ONE (06:00)
[2017-10-18] MEDS ORDERED: PANTOPRAZOLE SODIUM 40 MG TAB PO SCH (09:00)
[2017-10-18] MEDS ORDERED: HEPARIN 1000 UNIT/1 ML MDV ONE (09:32)
[2017-10-18] MEDS ORDERED: BUPIVACAINE 0.5% 30 ML SDV ONE ×2 (09:32→15:53)
[2017-10-18] MEDS ORDERED: ceFAZolin 1 GM/5 ML SYR ONE (09:33)
--- NOTE | 2017-10-18 10:09 | SOAPPROG ---
[facility] Progress Note Assessment/Plan: Assessment: SURGICAL RISKS AND OPTIONS FULLY DISCUSSED/ PLAN EXTENDED RT HEMICOLECTOMY HCT 44% Plan:COLECTOMY TODAY 10/18/17 10:08 Objective: Vital Signs Temp Pulse Resp BP Pulse Ox 36.6 C 61 16 103/63 92 10/18/17 07:38 10/18/17 07:38 10/18/17 07:38 10/18/17 07:38 10/18/17 07:38 10/17/17 10/18/17 10/19/17 05:59 05:59 05:59 Intake Total 500 Balance 500 ICD10 Worksheet Patient Problems: Problems Problem Status Onset Colonic mass Acute GI bleed Acute Bacteremia due to Gram-negative bacteria Acute Sepsis Acute Septic shock Acute
[2017-10-18] MEDS: PANTOPRAZOLE SODIUM 40 MG VIAL IVP SCH ×2 (10:20→10:34)
[2017-10-18] MEDS: NICOTINE 21 MG/24 HR PATCH TD SCH ×2 (10:25→21:14)
[2017-10-18] MEDS ORDERED: LR 1,000 ML IV ONE ×2 (10:54→11:14)
--- NOTE | 2017-10-18 12:42 | PDANEPAE ---
ANE History of Present Illness laparoscopic colectomy ANE Past Medical History - Pulmonary History Hx COPD: Yes Hx Oxygen in Use at Home: No Hx Sleep Apnea: Yes Sleep Apnea Screening Result - Last Documented: Positive - Neurologic History Hx Seizures: Yes Neurologic History Comment: Pt reports one previous seizure, undetermined cause. - Endocrine History Hx Diabetes: No ANE Review of Systems Review of Systems: - Exercise capacity Exercise capacity: >=4 METS ANE Patient History - Allergies Allergies/Adverse Reactions: No Known Allergies Allergy (Verified 10/13/17 09:10) - Home Medications Home medications: home medication list seen and reviewed Home Medications: Gabapentin [Neurontin 300 MG (*)] 600 mg PO BID PRN 09/05/17 [Last Taken ] Omeprazole 20 mg PO DAILY 09/05/17 [Last Taken Unknown] Albuterol [Proventil Inhaler HFA (*)] 1 - 2 puffs IH DAILY PRN 10/15/17 [Last Taken 10/15/17] - NPO status NPO Status: no food or drink >8 hours NPO Since - Liquids (Date): 10/18/17 NPO Since - Liquids (Time): 00:00 NPO Since - Solids (Date): 10/18/17 NPO Since - Solids (Time): 00:00 - Anes Hx Anes Hx: no prior problems - Smoking Hx Smoking Status: Current every day smoker Marijuana use: Yes - Alcohol Use Alcohol Use: Sober ANE Labs/Vital Signs - Labs Result Diagrams: 10/15/17 13:58 10/15/17 13:58 - Vital Signs Blood Pressure: 103/63 Heart Rate: 61 Respiratory Rate: 16 O2 Sat (%): 92 Height: 167.64 cm Weight: 97.522 kg ANE Physical Exam - Airway Neck exam: FROM Mallampati Score: Class 2 Mouth exam: poor dentition - Pulmonary Pulmonary: no respiratory distress - Cardiovascular Cardiovascular: regular rate and rhythym - ASA Status ASA Status: III
[2017-10-18] MEDS ORDERED: MIDAZOLAM 2 MG/2 ML VIAL IVP ONE ×2 (12:44→13:15)
[2017-10-18] MEDS ORDERED: fentaNYL 100 MCG/2 ML INJ ONE (13:09)
[2017-10-18] MEDS ORDERED: PROPOFOL 200 MG/20 ML VIAL ONE ×2 (13:10→15:55)
[2017-10-18] MEDS ORDERED: ROCURONIUM 50 MG/5 ML VIAL ONE ×2 (13:11→14:03)
[2017-10-18] MEDS ORDERED: LIDOCAINE 2% 2 ML INJ ONE (13:11)
[2017-10-18] MEDS ORDERED: DEXAMETHASONE 4 MG/ML VIAL ONE (13:11)
[2017-10-18] MEDS ORDERED: MIDAZOLAM 2 MG/2 ML VIAL ONE (13:16)
[2017-10-18] MEDS ORDERED: HYDROmorphONE/DILAUDID 2 MG/ML INJ ONE (14:06)
[2017-10-18] MEDS ORDERED: PROMETHAZINE HCL 25 MG/ML INJ IVP PRN (15:17)
[2017-10-18] MEDS ORDERED: HYDROmorphONE/DILAUDID 1 MG/ML INJ IVP PRN (15:17)
[2017-10-18] MEDS ORDERED: NALOXONE HCL 0.4 MG/ML INJ IVP PRN ×2 (15:17→16:15)
[2017-10-18] MEDS ORDERED: fentaNYL 100 MCG/2 ML INJ IVP PRN (15:17)
[2017-10-18] MEDS ORDERED: ONDANSETRON 4 MG/2 ML VIAL IVP PRN (15:17)
[2017-10-18] MEDS ORDERED: ONDANSETRON 4 MG/2 ML VIAL ONE ×2 (15:19→16:33)
[2017-10-18] MEDS ORDERED: GLYCOPYRROLATE 0.2 MG/1 ML VIAL ONE ×2 (15:20)
[2017-10-18] MEDS ORDERED: NEOSTIGMINE METHYLSULFATE 5 MG/5 ML SYR ONE (15:20)
[2017-10-18] MEDS ORDERED: ACETAMINOPHEN 325 MG TAB PO PRN (16:15)
--- NOTE | 2017-10-18 16:15 | POSTOPPROG ---
Post Op Note Date of Operation: 10/18/17 Surgeon: Lucas Diaz Cable Worker Helper: Arslan Anesthesiologist: Summer Anesthesia: GET(General Endotracheal) Pre-op Diagnosis: Colon mass Post-op Diagnosis: same Indication: same Procedure: Lap assisted R hemicolectomy, transverse colectomy, VH repair, omentectomy Findings: Firm mass in ascending colon, tatooed polypectomy site in transverse colon Inf/Abcess present in the surg proc area at time of surgery?: No Depth: Organ Space EBL: 50-100 Specimen(s): R colon Transverse colon- x2
--- NOTE | 2017-10-18 16:25 | POSTANESTH ---
Post Anesthetic Evaluation Cardiovascular Status: Similar to Pre-Op Cond Respiratory Status: Normal, Stable Level of Consciousness/Mental Status: Can Participate in Eval, Alert and Oriented Pain Control: Adequate, Prn Tx Ordered Nausea/Vomiting Control: Adequate, Prn Tx Ordered Complications Possibly Related to Anesthesia: None Noted
[2017-10-18] MEDS: HYDROmorphONE/DILAUDID 6 MG/30 ML PCA IV PRN (17:40)
[2017-10-18] MEDS: NS 1,000 ML IV SCH (17:44)
[2017-10-19] MEDS: LORazepam 2 MG/ML INJ IVP PRN ×5 (02:13→21:27)
[2017-10-19] MEDS: NS 1,000 ML IV SCH (03:59)
[2017-10-19] MEDS: HYDROmorphONE/DILAUDID 6 MG/30 ML PCA IV PRN ×2 (05:38→21:42)
[2017-10-19] MEDS ORDERED: TEMAZEPAM 15 MG CAP PO PRN (09:04)
[2017-10-19] MEDS: PANTOPRAZOLE SODIUM 40 MG VIAL IVP SCH (09:37)
[2017-10-19] MEDS: NICOTINE 21 MG/24 HR PATCH TD SCH (09:37)
[2017-10-19] MEDS: D5W 1/2 NS W/ 20 KCl/L 1,000 ML IV SCH ×2 (09:38→18:46)
[2017-10-19] MEDS: ENOXAPARIN 40 MG/0.4 ML SYR SC SCH (09:38)
[2017-10-19] MEDS: ONDANSETRON 4 MG/2 ML VIAL IVP PRN (09:45)
--- NOTE | 2017-10-19 12:51 | ASMTCMCOM ---
CM Note CM Note Notes: Pt had a colectomy yester day for a colon mass, pt has a lot of anxiety and may benefit from a consult with Mariaelena Friend MD to put order in, pt otherwise independent, no therapies ordered. Anticipate pt will dc home independent when medically stable. DC Plan: Independent Date Signed: 10/19/2017 12:50 PM Electronically Signed By:Mariaelena Sy RN
--- NOTE | 2017-10-19 16:14 | SOAPPROG ---
SOAP Progress Note Assessment/Plan: Assessment: 47 year old s/p extended right hemicolectomy Pain controlled Start Lovenox TLC consult for Anxiety S: No flatus yet O: Lying in bed poor dentition CTAB RRR BS hypoactive Soft Dressing cdi Plan: 10/19/17 16:13 Objective: Vital Signs Temp Pulse Resp BP Pulse Ox 36.4 C 79 16 118/87 H 99 10/19/17 15:57 10/19/17 15:57 10/19/17 15:57 10/19/17 15:57 10/19/17 15:57 10/18/17 10/19/17 10/20/17 05:59 05:59 05:59 Intake Total 500 2764 Output Total 650 950 Balance 500 2114 -950 ICD10 Worksheet Patient Problems: Problems Problem Status Onset Colonic mass Acute GI bleed Acute Bacteremia due to Gram-negative bacteria Acute Sepsis Acute Septic shock Acute
[2017-10-20] MEDS: D5W 1/2 NS W/ 20 KCl/L 1,000 ML IV SCH ×2 (03:53→18:13)
[2017-10-20] MEDS: LORazepam 2 MG/ML INJ IVP PRN ×2 (04:01→14:11)
[2017-10-20 05:33] LABS: PLATELET COUNT 286 10^3/uL (150-400)
--- NOTE | 2017-10-20 07:52 | SOAPPROG ---
SOAP Progress Note Assessment/Plan: Assessment: 47 year old s/p extended right hemicolectomy Pain controlled Start Lovenox TLC consult for Anxiety Passing flatus S: Flatus, pain controlled O: Lying in bed poor dentition CTAB RRR BS present Soft Incision cdi Plan: 10/19/17 16:13 10/20/17 07:51 Objective: Vital Signs Temp Pulse Resp BP Pulse Ox 36.7 C 87 14 136/76 H 94 10/20/17 07:34 10/20/17 07:34 10/20/17 07:34 10/20/17 07:34 10/20/17 07:34 Laboratory Results 10/20/17 05:18 10/20/17 05:18 10/19/17 10/20/17 10/21/17 05:59 05:59 05:59 Intake Total 2764 2280 Output Total 650 2450 100 Balance 2114 -170 -100 ICD10 Worksheet Patient Problems: Problems Problem Status Onset Colonic mass Acute GI bleed Acute Bacteremia due to Gram-negative bacteria Acute Sepsis Acute Septic shock Acute
[2017-10-20] MEDS: PANTOPRAZOLE SODIUM 40 MG VIAL IVP SCH (09:46)
[2017-10-20] MEDS: ENOXAPARIN 40 MG/0.4 ML SYR SC SCH (09:47)
[2017-10-20] MEDS: NICOTINE 21 MG/24 HR PATCH TD SCH (09:47)
[2017-10-20] MEDS: HYDROmorphONE/DILAUDID 6 MG/30 ML PCA IV PRN (14:00)
[2017-10-20] MEDS: ALBUTEROL 60 PUFFS/8 GM MDI IH PRN (18:06)
[2017-10-20] MEDS: ONDANSETRON 4 MG/2 ML VIAL IVP PRN (19:55)
--- NOTE | 2017-10-21 09:23 | SOAPPROG ---
SOAP Progress Note Assessment/Plan: Assessment: 47 Y M s/p lap assisted R hemicolectomy and transverse colectomy for suspicious mass and polyp POD #3 S: Up walking the halls. C/o incisional pain, but under control with non destructive evaluation technician. Tolerating clears. Not passing gas or stool yet, but feels rumbling. O:Alert Afebrile RRR No increased WOB Abdomen: distended, incision cdi, normoactive bowel sounds, appropriately ttp Plan: Continue ambulating. Will advance diet when he passes gas. 10/21/17 09:20 Objective: Vital Signs Temp Pulse Resp BP Pulse Ox 37.2 C 74 19 123/77 H 91 L 10/21/17 07:39 10/21/17 07:39 10/21/17 07:39 10/21/17 07:39 10/21/17 07:39 Laboratory Results 10/20/17 05:18 10/20/17 05:18 10/20/17 10/21/17 10/22/17 05:59 05:59 05:59 Intake Total 2280 1700 480 Output Total 4960 5984 600 Balance -170 -145 -120 ICD10 Worksheet Patient Problems: Problems Problem Status Onset Colonic mass Acute GI bleed Acute Bacteremia due to Gram-negative bacteria Acute Sepsis Acute Septic shock Acute
[2017-10-21] MEDS: PANTOPRAZOLE SODIUM 40 MG VIAL IVP SCH (09:55)
[2017-10-21] MEDS: NICOTINE 21 MG/24 HR PATCH TD SCH (09:56)
[2017-10-21] MEDS: ENOXAPARIN 40 MG/0.4 ML SYR SC SCH (09:56)
[2017-10-21] MEDS: LORazepam 2 MG/ML INJ IVP PRN (11:42)
[2017-10-21] MEDS: ALBUTEROL 60 PUFFS/8 GM MDI IH PRN (14:33)
--- NOTE | 2017-10-21 19:12 | GOP ---
[f rep st] OPERATIVE REPORT DATE OF OPERATION: 10/18/2017 SURGEON: Lucas Diaz MD PREOPERATIVE DIAGNOSIS: Right colon cancer and transverse colon polyp. POSTOPERATIVE DIAGNOSIS: Right colon cancer and transverse colon polyp. PROCEDURE PERFORMED: Laparoscopic right hemicolectomy and transverse colectomy. Ventral hernia repai r. FINDINGS: The patient was found to have a small sessile polyp, approximately 2 to 3 cm wide in the m id transverse colon. He had a large obstructing colon cancer at the hepatic flexure. No evidence of m etastatic disease in the liver or peritoneal cavity. Although the tumor did penetrate through the wal l of the colon into its own mesentery. DESCRIPTION OF PROCEDURE: The patient was taken to the operating room where he received a satisfacto ry general endotracheal anesthesia. He was placed in supine position, prepped and draped in usual maggie rile fashion. A periumbilical incision was made. A Veress needle inserted. Pneumoperitoneum was estab lished. Trocar was introduced. Laparoscope introduced. Good visualization was obtained. Three other t rocars placed under direct vision. Abdomen was examined with the above-noted findings. Incidentally n oted was an incisional hernia approximately 1.5 cm in size just above the umbilicus. This was actuall y used for a trocar site. The right colon was then mobilized along with the appendix and the terminal ileum by dividing the lateral peritoneal reflection and rotating the colon medially. The duodenum wa s identified and spared from injury. The transverse colon was also freed up from the hepatic flexure extending onto the mid transverse colon. The omentum was partially divided and removed from the wall of the colon. The colon was elevated up. The mesentery was divided with the Harmonic Scalpel, excisin g the nodes adjacent to the tumor and tumor extension into the mesentery. After adequate mobilization was achieved, midline upper abdominal incision was made. The specimen was elevated and brought up th rough this incision. The terminal ileum was divided with a JORGE stapler. The mesenteric division was c ompleted with the Harmonic Scalpel. The transverse colon was divided with a JORGE stapler. Attention was turned to the polypectomy site where a small wedge around the polyp was removed. Howeve r, this left only a short segment between the 2 excisions and it was elected to go ahead and remove t hat section as well so we would only have 1 anastomosis. This again was done with the Harmonic Scalpe l, preserving the middle colic artery however. Both specimens were sent to pathology and returned as a villous polyp and an obstructing cancer. The terminal ileum and the left transverse colon were anas tomosed in a [id number] fashion with a JORGE stapler and a cross application of the JORGE stapler. Mese ntery was closed with a running 3-0 Vicryl suture. The suture lines were reinforced with interrupted 3-0 silk sutures. This created a good 3 fingerbreadth anastomosis. Wound was irrigated. Hemostasis wa s assured. There were no other major findings. The ventral hernia was then repaired with interrupted 0 Surgilon [id number] sutures closing the fascial defect transversely. Wounds were all infiltrat ed with 0.5% Marcaine. A clean closure setup was used with instruments and towels, gloves and gowns a nd the wound was closed with a running #1 PDS suture for the linea alba, a 3-0 Vicryl for the subcuta neous. The skin was closed with skin silvia and the other remaining trocar sites were closed with sk in silvia as well. All wounds were infiltrated with 0.5% Marcaine. He tolerated the procedure well, was taken to the recovery room in good condition. There were no complications. /[id number]/MODL
[2017-10-21] MEDS: HYDROmorphONE/DILAUDID 6 MG/30 ML PCA IV PRN (22:08)
[2017-10-22] MEDS: LORazepam 2 MG/ML INJ IVP PRN ×2 (01:50→10:34)
[2017-10-22] MEDS: D5W 1/2 NS W/ 20 KCl/L 1,000 ML IV SCH ×2 (05:37→09:53)
[2017-10-22] MEDS: NICOTINE 21 MG/24 HR PATCH TD SCH (09:53)
[2017-10-22] MEDS: ENOXAPARIN 40 MG/0.4 ML SYR SC SCH (09:53)
[2017-10-22] MEDS: PANTOPRAZOLE SODIUM 40 MG VIAL IVP SCH (09:53)
--- NOTE | 2017-10-22 15:07 | SOAPPROG ---
SOAP Progress Note Assessment/Plan: Assessment/Plan: 47 Y M c hx abdominal pain and hematochezia, thought to be 2/2 colitis, now colon mass of hepatic flexure. Pathology pending. Regular diet. Buff cap IVF. 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 Start PO meds. Dispo: likely d/c in next 1-2 days. Possibly to a hotel per patient? Will d/w case management. S: less tearful. smiling. pain controlled. had a BM. O: alert, nad no jaundice. poor dentition. ctab. rrr. abd soft, nt. inc cdi 10/22/17 15:01 Objective: Vital Signs Temp Pulse Resp BP Pulse Ox 37.0 C 76 20 125/85 H 20 L 10/22/17 11:16 10/22/17 11:16 10/22/17 11:16 10/22/17 11:16 10/22/17 11:16 Laboratory Results 10/20/17 05:18 10/20/17 05:18 10/21/17 10/22/17 10/23/17 05:59 05:59 05:59 Intake Total 1700 1680 Output Total 1845 1600 325 Balance -145 80 -325 ICD10 Worksheet Patient Problems: Problems Problem Status Onset Colonic mass Acute GI bleed Acute Bacteremia due to Gram-negative bacteria Acute Sepsis Acute Septic shock Acute
--- NOTE | 2017-10-22 15:30 | ASMTCMCOM ---
CM Note CM Note Notes: Per surgery note today, patient nearing discharge. 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 I went to speak with patient about discharge planning, but he was very grumpy and said he didn't want to talk about it. Said he wanted to sleep. He mentioned that he wasn't sure what he was going to do, that his current house wasn't "set up the way he needed it to be." When I questioned further, he turned away and closed his eyes. Case Management will follow. Date Signed: 10/22/2017 03:29 PM Electronically Signed By:Irene Jacobson RN
[2017-10-22] MEDS: HYDROmorphONE/DILAUDID 1 MG/ML INJ IVP PRN (20:42)
[2017-10-23] MEDS ORDERED: ONDANSETRON DISINTEGRATING 4 MG TAB PO PRN (09:45)
[2017-10-23] MEDS ORDERED: IBUPROFEN 600 MG TAB PO PRN (09:46)
[2017-10-23] MEDS: PANTOPRAZOLE SODIUM 40 MG VIAL IVP SCH (10:29)
[2017-10-23] MEDS: ENOXAPARIN 40 MG/0.4 ML SYR SC SCH (10:35)
[2017-10-23] MEDS: NICOTINE 21 MG/24 HR PATCH TD SCH (10:35)
--- NOTE | 2017-10-23 12:17 | SOAPPROG ---
SOAP Progress Note Assessment/Plan: Assessment/Plan: 47 Y M c hx abdominal pain and hematochezia, thought to be 2/2 colitis, now colon mass of hepatic flexure. s/p R hemicolectomy, transverse colectomy, VH repair. Pathology pending. Regular diet. D/c IV. All PO meds. Dispo: once arrangements made. [place] and looking to temporarily stay closer to town upon d/c. Discussed all limitations and d/c info. Discussed Rx's. S: eating, pain controlled. nervous to be on IV pain meds only. O: alert, nad no jaundice. poor dentition. ctab. rrr. abd soft, nt. inc cdi c silvia 10/23/17 12:07 Objective: Vital Signs Temp Pulse Resp BP Pulse Ox 37.2 C 65 16 108/69 93 10/23/17 04:00 10/23/17 04:00 10/23/17 04:00 10/23/17 04:00 10/23/17 04:00 Laboratory Results 10/20/17 05:18 10/20/17 05:18 10/22/17 10/23/17 10/24/17 05:59 05:59 05:59 Intake Total 1680 1875 Output Total 1600 325 Balance 80 1550 ICD10 Worksheet Patient Problems: Problems Problem Status Onset Colonic mass Acute GI bleed Acute Bacteremia due to Gram-negative bacteria Acute Sepsis Acute Septic shock Acute
[2017-10-23] MEDS: LORazepam 1 MG TAB PO PRN ×2 (12:40→18:41)
--- NOTE | 2017-10-23 16:40 | ASMTCMCOM ---
CM Note CM Note Notes: Spoke w/ PA and RN re; dc poc. [place] and needs to chop wood for heat and cooking. He is independent but is not supposed to lift heavy items. CM met with pt to discuss dc options, he states he has no friends or family to help him. CM asked if pt could afford hotel for $99/night but he states at this time he only gets $180/month. He is supposed to get more income monthly for disability but that won't start until late this year or next year. Pt gave name and number of MALACHI Emmy at [facility] ([phone]) who does mountain assistance, CM called and left message. Date Signed: 10/23/2017 04:39 PM Electronically Signed By:Mariaelena Sy RN
--- NOTE | 2017-10-23 16:53 | ASMTCMCOM ---
CM Note CM Note Notes: Received call back from Emmy at [facility], discussed that hospital can offer 2 nights stay in hotel for respite, pt has no nursing needs and is independent. Emmy will be gone this weekend but will send an email to her team to see if they can help with additional hotel stay but typically is only for people with children. Met with pt to discuss, offered hotel in [facility] or [facility]. States [place] is better but is upset that it is only for 2 nights. He thinks he needs a longer stay and states "I'm just going to tell you that i'll be right back in the ER" Pt asked if doctor ok with him going back home after two days, CM responded that the PA who works with Dr Diaz is aware of pt's living situation but he wants to hear it from the doctor not the PA. CM will pass along message. DC Plan: Hotel respite at [facility] Date Signed: 10/23/2017 04:53 PM Electronically Signed By:Mariaelena Sy RN
--- NOTE | 2017-10-23 18:53 | GHP ---
[f rep st] PREOP HISTORY AND PHYSICAL HISTORY OF PRESENT ILLNESS: Patient is a 47-year-old male who has had a previous colon resection. He presents complaining of crampy abdominal pain and bloody bowel movements. He had a CT scan approximately 6 weeks ago, which had suggested colitis of his right colon. He has not had a colonoscopy since that time, although that was recommended. He is admitted at this time for further evaluation for partial blockage from a possible right colon cancer. Followup CT scan done today shows a larger mass in the right hepatic flexure. PAST SURGICAL HISTORY: Includes a previous colectomy for diverticulitis. REVIEW OF SYSTEMS: Reveals no other major medical issues on a full complete review of systems except related to the H and P. PAST MEDICAL HISTORY: Includes obstructive sleep apnea, obesity, anxiety, perforated diverticulitis, history of seizures, DVT in the past, a hernia repair , and a sigmoid colectomy. FAMILY HISTORY: Positive for colon cancer in multiple relatives. SOCIAL HISTORY: Reveals that he is a daily smoker. ALLERGIES: None. MEDICATIONS: Neurontin, omeprazole, and a Ventolin inhaler. PHYSICAL EXAMINATION: GENERAL: Reveals an alert, overweight, 47-year-old male who is in no acute distress. HEAD and NECK: Exam reveals no icterus or adenopathy or oral lesions. Neck is supple and nontender with full range of motion. CHEST: Clear and symmetric. CARDIAC: Exam reveals a regular rhythm without murmurs. ABDOMEN: Soft. He is distended. He has some right upper quadrant discomfort and mild tenderness. BACK: Normal with no CVA tenderness or spinal abnormalities. GENITALIA: Normal. EXTREMITIES: Have full range of motion and full pulses. NEUROLOGIC: Exam reveals his cranial nerves to be intact and he is otherwise physiologic and symmetric. PSYCH: Exam reveals him to be alert, oriented, and cooperative. He is somewhat anxious. IMPRESSION: Probable right colon cancer. PLAN: Admit for evaluation, colonoscopy, and possible surgery. Risks and options have been fully discussed, and he wishes to proceed. /[id number]/MODL MTDD
[2017-10-23] MEDS: oxyCODONE IR 5 MG TAB PO PRN ×2 (19:59→23:57)
[2017-10-24 07:13] VITALS: BP 122/70
--- NOTE | 2017-10-24 10:29 | SOAPPROG ---
NASEEM Progress Note Assessment/Plan: Assessment: 47 Y M s/p lap assisted R hemicolectomy and transverse colectomy for suspicious mass and polyp Path reveals 13 cm adenocarcinoma in R colon, 0 LN negative S: Pain well controlled. Passing gas. Tolerating regular diet. O:Alert Afebrile RRR No increased WOB Abdomen: distended, incision cdi, normoactive bowel sounds, appropriately ttp Plan: Dispo to hotel today so pt can stay in town close to hospital. Plans to go home to house in [facility] after 2 days at [facility]. Discussed path report, pt expressed understanding. He will need to follow up with onc as an outpt. 10/24/17 10:27 Objective: Vital Signs Temp Pulse Resp BP Pulse Ox 36.8 C 60 12 122/70 H 96 10/24/17 07:12 10/24/17 07:12 10/24/17 07:12 10/24/17 07:12 10/24/17 07:12 Laboratory Results 10/20/17 05:18 10/20/17 05:18 10/23/17 10/24/17 10/25/17 05:59 05:59 05:59 Intake Total 1875 300 Output Total 325 5 Balance 1550 295 ICD10 Worksheet Patient Problems: Problems Problem Status Onset Colonic mass Acute GI bleed Acute Bacteremia due to Gram-negative bacteria Acute Sepsis Acute Septic shock Acute
[2017-10-24] MEDS: ENOXAPARIN 40 MG/0.4 ML SYR SC SCH (10:37)
[2017-10-24] MEDS: NICOTINE 21 MG/24 HR PATCH TD SCH (10:38)
--- NOTE | 2017-10-24 11:41 | ASMTLACE ---
JAYNE Length of stay for Answers: 7-13 days current admission Acuity / Level of Answers: Yes Care: Did the patient have an inpatient admission? Comorbidities - select Answers: Other Notes: Diverticulitis; Seizure s all that apply # of Emergency department Answers: 3-4 visits in the last 6 months Social determinants Answers: Mental health diagnosis (anxiety, depression, pers onality disorders, etc.) Score: 15 Date Signed: 10/24/2017 10:59 AM Electronically Signed By:Mariaelena Sy RN
--- NOTE | 2017-10-24 11:43 | ASMTCMCOM ---
CM Note CM Note Notes: Met with pt to go over discharge plan. Pt will take Medicaid transport/cab to the [facility], which has been booked for 2 nights (10/24 + 10/25), confirmation # [id number]. Confirmed with Fred at the hotel that if pt needs to stay for a few more nights, he can pay discounted rate. Notified pt that breakfast is included and that we will send him with a few sandwiches. DC Plan: Independent Date Signed: 10/24/2017 11:32 AM Electronically Signed By:Mariaelena Sy RN
--- NOTE | 2017-10-24 11:51 | ASMTDCNOTE ---
Case Management Discharge Discharge Order Complete? Answers: Yes Patient to Obtain Answers: Other Notes: [facility] Medications Transportation Arranged Answers: Other Notes: Medicaid Transport Transport will Pick (Date 10/24/2017 12:15 PM & Time) Discharge Comments Notes: D/w RN, pt will dc to [facility] with Medicaid transport. Prescriptions being filled by [facility]. Date Signed: 10/24/2017 11:36 AM Electronically Signed By:Mariaelena Sy RN
== END 2017-10-24 12:15 | disposition home or self-care (01) | DRG 231 ==
LOC: F3E 12:15 → OBSVTOIN 10-16 15:16
PROVIDERS: ADMIT Surgery; ATTEND Surgery
PROC: 0DBL8ZX Excision of Transverse Colon, Via Natural or Artificial Opening Endoscopic, Diagnostic (ICD-10-PCS; 2017-10-16)
PROC: 0DTL4ZZ Resection of Transverse Colon, Percutaneous Endoscopic Approach (ICD-10-PCS; principal; 2017-10-18 11:45)
PROC: 0WQF0ZZ Repair Abdominal Wall, Open Approach (ICD-10-PCS; principal; 2017-10-18 11:45)
PROC: 0DTF4ZZ Resection of Right Large Intestine, Percutaneous Endoscopic Approach (ICD-10-PCS; principal; 2017-10-18 11:45)
DX: C18.2 Malignant neoplasm of ascending colon (principal); D12.3 Benign neoplasm of transverse colon; F41.9 Anxiety disorder, unspecified; G47.33 Obstructive sleep apnea (adult) (pediatric); E66.9 Obesity, unspecified; Z86.718 Personal history of other venous thrombosis and embolism; F17.200 Nicotine dependence, unspecified, uncomplicated; J44.9 Chronic obstructive pulmonary disease, unspecified
CPT/HCPCS: 96374; G0378; J0694; J1100; J1170; J1650; J2060; J2250; J2405; J2704; J2710; J3010

== ENCOUNTER 2018-07-18 11:01 | Emergency (ER) | payer MEDICAID ==
[2018-07-18] MEDS ORDERED: KETOROLAC 30 MG/1 ML SDV IVP ONE (11:31)
[2018-07-18] MEDS ORDERED: NS 1,000 ML IV ONE (11:31)
[2018-07-18] MEDS ORDERED: IOPAMIDOL (ISOVUE-300) 100 ML BTL ONE (11:38)
--- NOTE | 2018-07-18 11:38 | EDPHY ---
H & P Stated Complaint: Constipation and bilat LQ pn c nausea x2D, colon CA Hx Time Seen by Provider: 07/18/18 11:24 HPI/ROS: CHIEF COMPLAINT: Abdominal pain, diarrhea, distension HISTORY OF PRESENT ILLNESS: The patient is a 48-year-old man with a history of colon cancer with a right hemicolectomy 1 year ago. Also history of diverticulitis with a sigmoid colectomy 4 years ago. He comes to the emergency department complaining of abdominal pain, cramping, distension and watery stool. No vomiting. No blood in his stool. No fever. He is concerned for obstruction. He spoke with his surgeon Dr. Diaz who recommended he come to be evaluated. He has had the symptoms for about the last 2 days. Severity: Moderate Modifying factors: Worsened by eating REVIEW OF SYSTEMS: Constitutional: denies: chills, fever, recent illness, recent injury EENTM: denies: blurred vision, double vision, nose congestion Respiratory: denies: cough, shortness of breath Cardiac: denies: chest pain, irregular heart rate, lightheadedness, palpitations Gastrointestinal/Abdominal: See HPI Genitourinary: denies: dysuria, frequency, hematuria, pain Musculoskeletal: denies: joint pain, muscle pain Skin: denies: lesions, rash, jaundice, bruising Neurological: denies: headache, numbness, paresthesia, tingling, dizziness, weakness Hematologic/Lymphatic: denies: blood clots, easy bleeding, easy bruising Immunologic/allergic: denies: HIV/AIDS, transplant 10 systems reviewed and negative except as noted EXAM: GENERAL: Well-appearing, well-nourished and in no acute distress. HEAD: Atraumatic, normocephalic. EYES: Pupils equal round and reactive to light, extraocular movements intact, sclera anicteric, conjunctiva are normal. ENT: TMs normal, nares patent, oropharynx clear without exudates. Moist mucous membranes. NECK: Normal range of motion, supple without lymphadenopathy or JVD. LUNGS: Breath sounds clear to auscultation bilaterally and equal. No wheezes rales or rhonchi. HEART: Regular rate and rhythm without murmurs, rubs or gallops. ABDOMEN: Distended, well-healed scars, nontender BACK: No CVA tenderness, no spinal tenderness, step-offs or deformities EXTREMITIES: Normal range of motion, no pitting or edema. No clubbing or cyanosis. NEUROLOGICAL: Cranial nerves II through XII grossly intact. Normal speech, normal gait. 5/5 strength, normal movement in all extremities, normal sensation , PSYCH: Normal mood, normal affect. SKIN: Warm, dry, normal turgor, no visible rashes or lesions. Source: Patient Exam Limitations: No limitations - Personal History Current Tetanus/Diphtheria Vaccine: Yes Tetanus Vaccine Date: < 10 YEARS - Medical/Surgical History Hx Asthma: No Hx Chronic Respiratory Disease: Yes Hx Diabetes: No Hx Cardiac Disease: No Hx Renal Disease: No Hx Cirrhosis: No Hx Alcoholism: No Hx HIV/AIDS: No Hx Splenectomy or Spleen Trauma: No Other PMH: medical- obstructive sleep apnea, obesity, anxiety, diverticuitis w/ perforation, seizures, DVT. surgical- hernia repair, sigmoid colectomy - Family History Significant Family History: No pertinent family hx - Social History Smoking Status: Current every day smoker Alcohol Use: Sober Drug Use: None Constitutional: Initial Vital Signs Temperature (C) 36.5 C 07/18/18 11:05 Heart Rate 83 07/18/18 11:05 Respiratory Rate 18 07/18/18 11:05 Blood Pressure 142/102 H 07/18/18 11:05 O2 Sat (%) 96 07/18/18 11:05 O2 Delivery Mode Room Air Allergies/Adverse Reactions: No Known Allergies Allergy (Verified 07/18/18 11:02) Home Medications: Medication Instructions Recorded Gabapentin [Neurontin 300 MG (*)] 600 mg PO BID PRN 09/05/17 Omeprazole 20 mg PO DAILY 09/05/17 Albuterol [Proventil Inhaler HFA 1 - 2 puffs IH DAILY PRN 10/15/17 (*)] Acetaminophen [Tylenol 325mg (*)] 325 - 650 mg PO Q4HRS PRN tab 10/23/17 Ibuprofen [Motrin (*)] 600 mg PO Q6HRS PRN #40 tab 10/23/17 LORazepam [Ativan (*)] 1 mg PO Q4HRS PRN #30 tab 10/23/17 Ondansetron Odt [Zofran Odt 4 mg 4 mg PO Q6HRS PRN #20 tab 10/23/17 (*)] oxyCODONE IR [Oxycodone Ir (*)] 5 mg PO Q6HRS PRN #30 tab 10/23/17 Budesonide [Budesonide ER] 9 mg PO DAILY #7 tabdr...er 07/18/18 Medical Decision Making - Diagnostics Imaging: Discussed imaging studies w/ scallop raker Radiologist ED Course/Re-evaluation: 1:15 p.m. we discussed his CT and lab results which are very reassuring overall. His abdominal exam is nontender. He has been on the phone with Dr. Diaz and states that Dr. Diaz will give him a prescription for pain medication. He declined the Toradol I had offered. He also expressed some concern because last year when he had colon cancer they initially thought that it was colitis on CT scan. He will follow up with Dr. Diaz as well as GI for further evaluation. We discussed indications for returning to the ER. 1:[address] Muñiz called and has spoke with the patient on the phone. He is asking that we give the patient a prescription for budesonide 1st colitis. Differential Diagnosis: Partial list of the Differential diagnosis considered include but were not limited to; colitis, small-bowel obstruction and although unlikely based on the history and physical exam, I also considered ischemia, volvulus, hernia. - Data Points Laboratory Results: Laboratory Results 07/18/18 11:36 07/18/18 11:36 Medications Given: Discontinued Medications Sodium Chloride (Ns) 1,000 mls @ 0 mls/hr IV EDNOW ONE; Wide Open PRN Reason: Protocol Stop: 07/18/18 11:32 Last Admin: 07/18/18 11:45 Dose: Not Given Ketorolac Tromethamine (Toradol) 15 mg IVP EDNOW ONE Stop: 07/18/18 11:32 Last Admin: 07/18/18 11:45 Dose: Not Given Departure - Departure Disposition: Home, Routine, Self-Care Clinical Impression: Colitis Condition: Fair Instructions: Diet for Stomach Ulcers and Gastritis (ED), Colitis (ED) Referrals: Chace Álvarez MD [Primary Care Provider] - As per Instructions Lucas Diaz MD [Medical Doctor] - 2-3 days, call for appt. Prescriptions: Budesonide [Budesonide ER] 9 mg PO DAILY #7 tabdr...er
[2018-07-18 11:45] LABS: PLATELET COUNT 222 10^3/uL (150-400)
[2018-07-18 11:57] LABS: INR 0.93 (0.83-1.16); PROTIME(PATIENT) 12.1 SEC (12.0-15.0)
[2018-07-18 13:33] VITALS: BP 136/86
== END 2018-07-18 13:34 | disposition home or self-care (01) ==
DX: K52.9 Noninfective gastroenteritis and colitis, unspecified (principal); E86.9 Volume depletion, unspecified; Z85.038 Personal history of other malignant neoplasm of large intestine
CPT/HCPCS: J1885; Q9967